=== PATIENT | female | born 2000 | race American Indian/Alaskan Native ===

== ENCOUNTER 2020-02-13 12:37 | Emergency (ER) | payer OTHER ==
[~2020-02-13] VITALS: Ht 157.5 cm; Wt 108.4 kg
[2020-02-13] MEDS ORDERED: FLUOXETINE HCL20 MG PO (12:54)
== END 2020-02-13 14:49 | disposition home or self-care (01) ==
LOC: ED 12:37
DX: S93.402A Sprain of unspecified ligament of left ankle, initial encounter (principal); X50.9XXA Other and unspecified overexertion or strenuous movements or postures, initial encounter
CPT/HCPCS: 73590; 73610; 99283-25; A9270

== ENCOUNTER 2020-11-18 13:47 | Emergency (ER) | payer OTHER ==
[~2020-11-18] VITALS: Ht 157.5 cm; Wt 108.4 kg
[~2020-11-18 13:47] MED LIST: FLUOXETINE HCL20 MG PO
== END 2020-11-18 15:52 | disposition home or self-care (01) ==
LOC: ED 13:47
DX: H00.014 Hordeolum externum left upper eyelid (principal)
CPT/HCPCS: 99283

== ENCOUNTER 2021-04-16 12:03 | Emergency (ER) | payer OTHER ==
[~2021-04-16] VITALS: Ht 157.5 cm; Wt 104.3 kg
== END 2021-04-16 13:39 | disposition home or self-care (01) ==
LOC: ED 12:03
DX: S39.011A Strain of muscle, fascia and tendon of abdomen, initial encounter (principal); D17.1 Benign lipomatous neoplasm of skin and subcutaneous tissue of trunk; X58.XXXA Exposure to other specified factors, initial encounter
CPT/HCPCS: 84703; 99284